=== PATIENT | female | born 2000 | race Two or more races ===

== ENCOUNTER 2024-01-12 16:18 | Emergency (ER) | payer OTHER ==
[~2024-01-12] VITALS: Ht 157.5 cm; Wt 52.2 kg
[2024-01-12 19:24] LABS: HEMATOCRIT 35.6 % (36.0-45.00); HEMOGLOBIN 12.2 g/dL (12.0-15.00); MEAN CORPUSCULAR HEMOGLOBIN 28.8 pg (27.00-32.0); MEAN CORPUSCULAR HGB CONC 34.3 g/dl (32.0-36.0); PLATELET COUNT 289 K/uL (150-450); RED BLOOD COUNT 4.24 M/uL (4.00-6.00); RED CELL DISTRIBUTION WIDTH 14.2 % (11.5-14.5)
[2024-01-12 20:00] LABS: INR 1.08; PARTIAL THROMBOPLASTIN TIME 33.6 SECONDS (22.0-34.0); PROTHROMBIN TIME 11.7 SECONDS (9.0-11.5)
[2024-01-12 20:18] LABS: CALCIUM 9.6 mg/dL (8.5-10.1); CREATININE SERUM 0.53 mg/dL (0.55-1.02); GFR 144.25; POTASSIUM 4.23 mEq/L (3.5-5.1)
[2024-01-12 21:11] LABS: PH,URINE 5.5 (5.0-8.0); URINE APPEARANCE Turbid; URINE BILIRRUBIN Negative (NEGATIVE); URINE BLOOD Negative; URINE COLOR Dark Yellow; URINE GLUCOSE Negative (NEGATIVE); URINE LEUKOCYTE Small; URINE NITRATE Negative; URINE PROTEIN Trace (NEGATIVE)
[2024-01-12 21:15] LABS: URINE CAST 1.52 uL (0.0-1.40); URINE RBC 6.8 uL (0.0-20.8)
[2024-01-12 22:05] LABS: URINE BACTERIA > 9821.5 uL (0.0-1933); URINE EPITHELIAL CELLS > 201.7 uL (0.0-38.8); URINE KETONE 80 (NEGATIVE)
[2024-01-12] MEDS ORDERED: METOCLOPRAMIDE HCL 5 MG/ML VIAL IM ONE (22:45)
== END 2024-01-12 22:47 | disposition home or self-care (01) ==
LOC: ER 16:20
PROVIDERS: General Practice
DX: O23.31 Infections of other parts of urinary tract in pregnancy, first trimester (principal); N39.0 Urinary tract infection, site not specified; Z3A.01 Less than 8 weeks gestation of pregnancy